=== PATIENT | male | born 1970 | race Caucasian/White ===

== ENCOUNTER 2020-08-27 14:17 | Inpatient (IN) | payer OTHER ==
[~2020-08-27] VITALS: Ht 175.3 cm; Wt 61.2 kg
[2020-08-27 14:20] VITALS: BP_SYST 114
[2020-08-27 15:16] LABS: BASOPHILS # (AUTO) 0.1 K/uL (0.0-0.2); BASOPHILS % (AUTO) 0.8 % (0.0-2.0); EOSINOPHILS # (AUTO) 0.1 K/uL (0.0-0.4); EOSINOPHILS % (AUTO) 0.6 % (0.0-4.0); HEMOGLOBIN 7.9 g/dL (14.0-18.0); LYMPHOCYTES # (AUTO) 1.7 K/uL (1.0-5.5); LYMPHOCYTES % (AUTO) 11.4 % (20.5-51.5); MEAN CORPUSCULAR HEMOGLOBIN 24 pg (27-31); MEAN CORPUSCULAR HGB CONC 31 % (32-36); MEAN CORPUSCULAR VOLUME 80 fL (79.0-98.0); MONOCYTES # (AUTO) 1.9 K/uL (0.0-1.0); MONOCYTES % (AUTO) 12.3 % (1.7-9.3); NEUTROPHILS # (AUTO) 11.5 K/uL (1.8-7.7); NEUTROPHILS % (AUTO) 74.9 % (40.0-70.0); PLATELET COUNT (AUTO) 380 K/uL (130-430); RED BLOOD CELL COUNT(AUTO) 3.27 MIL/uL (4.2-6.2); RED CELL DISTRIBUTION WIDTH 18.9 % (9.0-15.0); WHITE BLOOD COUNT (AUTO) 15.4 K/uL (4.8-10.8)
[2020-08-27] MEDS ORDERED: TRAZ-251 PO (15:19)
[2020-08-27] MEDS ORDERED: DIVA250T PO (15:19)
[2020-08-27] MEDS ORDERED: BENZ2AMP IJ (15:19)
[2020-08-27] MEDS ORDERED: BENZ1TAB76 PO (15:19)
[2020-08-27] MEDS ORDERED: HAL5 PO (15:19)
[2020-08-27] MEDS ORDERED: MIRT15TA7 PO (15:19)
[2020-08-27] MEDS ORDERED: LITH300C2 PO (15:19)
[2020-08-27 15:29] LABS: CALCIUM 9.6 mg/dL (8.4-11.0); CREATININE 0.62 mg/dL (0.55-1.30); POTASSIUM 3.9 mmol/L (3.5-5.1)
[2020-08-27] MEDS ORDERED: NACL 0.9% 1,000 ML IV ONE ×2 (15:30→20:15)
[2020-08-27 15:35] LABS: INR 1.1 (0.80-1.20); PROTHROMBIN TIME 11.5 SECS (9.5-12.5)
[2020-08-27 15:42] LABS: ALBUMIN 1.6 g/dL (3.4-4.8); TOTAL BILIRUBIN 0.2 mg/dL (0.0-1.0)
[2020-08-27] MEDS ORDERED: cefTRIAXone 1 GM in D5W 50 ML IV ONE (16:00)
[2020-08-27] MEDS ORDERED: MORPHINE 4 MG INJ. 4 MG/ML VIAL IVP ONE (16:30)
[2020-08-27] MEDS ORDERED: HALOPERIDOL LACTATE 5 MG/ML VIAL IVP ONE (16:30)
[2020-08-27] MEDS ORDERED: cefTRIAXone 1 GM VIAL ONE (16:38)
[2020-08-27] MEDS ORDERED: POTASSIUM CHLORIDE 20 MEQ TAB.PRT.SR PO PRN (17:30)
[2020-08-27] MEDS ORDERED: MAGNESIUM SULFATE 50 ML IV PRN (17:30)
[2020-08-27] MEDS ORDERED: DOCUSATE SODIUM 100 MG CAPSULE PO PRN (17:30)
[2020-08-27] MEDS ORDERED: ONDANSETRON HCL 4 MG/2 ML VIAL IVP PRN (17:30)
[2020-08-27] MEDS ORDERED: MUPIROCIN 2% TOPICAL OINTMENT 22 GM NS PRN (17:30)
[2020-08-27] MEDS ORDERED: MORPHINE 2 MG/ML INJ. SYRINGE IVP PRN ×2 (17:30)
[2020-08-27] MEDS ORDERED: NALOXONE HCL 0.4 MG/ML AMP (NARCAN) IVP PRN ×2 (17:30)
[2020-08-27] MEDS ORDERED: ZOLPIDEM TARTRATE 5 MG TABLET PO PRN (17:30)
[2020-08-27] MEDS ORDERED: ACETAMINOPHEN 325 MG TABLET PO PRN (17:30)
[2020-08-27] MEDS ORDERED: BENZTROPINE MESYLATE 1 MG TABLET PO SCH (21:00)
[2020-08-27] MEDS ORDERED: traZODone HCL 50 MG TABLET (DESYREL) PO SCH (21:00)
[2020-08-27] MEDS ORDERED: MIRTAZAPINE 15 MG TABLET PO SCH (21:00)
[2020-08-27] MEDS ORDERED: HALOPERIDOL 5 MG TABLET (HALDOL) PO SCH (21:00)
[2020-08-27 21:30] VITALS: BP_SYST 130
[2020-08-27] MEDS: MIDODRINE HCL 5 MG TABLET (PROAMATINE) PO SCH ×2 (22:02→22:13)
[2020-08-27] MEDS: LITHIUM CARBONATE 300 MG TABLET.SA PO SCH (22:03)
[2020-08-27] MEDS: HEPARIN SODIUM,PORCINE 5,000 UNITS/ML VIAL SUBCUT SCH (22:12)
[2020-08-27] MEDS: NACL 0.9% 1,000 ML IV SCH (22:22)
[2020-08-27] MEDS: DIVALPROEX SODIUM 250 MG TAB.SR.24H (DEPAKOTE ER) PO SCH (22:22)
[2020-08-28] MEDS: LORazepam 2 MG/ML VIAL IVP PRN ×2 (05:09→13:40)
[2020-08-28 05:54] LABS: BASOPHILS # (AUTO) 0.1 K/uL (0.0-0.2); BASOPHILS % (AUTO) 1.1 % (0.0-2.0); EOSINOPHILS # (AUTO) 0.1 K/uL (0.0-0.4); EOSINOPHILS % (AUTO) 1.2 % (0.0-4.0); HEMATOCRIT 27.6 % (36-54); HEMOGLOBIN 8.3 g/dL (14.0-18.0); LYMPHOCYTES # (AUTO) 1.7 K/uL (1.0-5.5); LYMPHOCYTES % (AUTO) 14.4 % (20.5-51.5); MEAN CORPUSCULAR HEMOGLOBIN 24 pg (27-31); MEAN CORPUSCULAR HGB CONC 30 % (32-36); MEAN CORPUSCULAR VOLUME 81 fL (79.0-98.0); MONOCYTES # (AUTO) 1.4 K/uL (0.0-1.0); MONOCYTES % (AUTO) 11.7 % (1.7-9.3); NEUTROPHILS # (AUTO) 8.4 K/uL (1.8-7.7); NEUTROPHILS % (AUTO) 71.6 % (40.0-70.0); PLATELET COUNT (AUTO) 408 K/uL (130-430); RED CELL DISTRIBUTION WIDTH 18.9 % (9.0-15.0); WHITE BLOOD COUNT (AUTO) 11.8 K/uL (4.8-10.8)
[2020-08-28] MEDS: NACL 0.9% 1,000 ML IV SCH (06:00)
[2020-08-28 06:12] LABS: CALCIUM 9.3 mg/dL (8.4-11.0); CREATININE 0.61 mg/dL (0.55-1.30); POTASSIUM 3.8 mmol/L (3.5-5.1)
[2020-08-28 08:00] VITALS: BP_SYST 107
[2020-08-28] MEDS ORDERED: HALOPERIDOL LACTATE 5 MG/ML VIAL IM PRN (08:45)
[2020-08-28] MEDS: LITHIUM CARBONATE 300 MG TABLET.SA PO SCH (08:46)
[2020-08-28] MEDS: DIVALPROEX SODIUM 250 MG TAB.SR.24H (DEPAKOTE ER) PO SCH (08:47)
[2020-08-28] MEDS: MIDODRINE HCL 5 MG TABLET (PROAMATINE) PO SCH ×2 (08:47→15:22)
[2020-08-28] MEDS: HEPARIN SODIUM,PORCINE 5,000 UNITS/ML VIAL SUBCUT SCH (08:55)
[2020-08-28] MEDS ORDERED: HALOPERIDOL 5 MG TABLET (HALDOL) PO SCH (09:00)
[2020-08-28] MEDS ORDERED: PIPERACILLIN/TAZO 3.375/DEX-IS 50 ML IV ONE (10:00)
[2020-08-28 12:00] VITALS: BP_SYST 94
[2020-08-28 15:01] VITALS: BP_SYST 90
[2020-08-28 15:30] VITALS: BP_SYST 90
[2020-08-28] MEDS ORDERED: cefTRIAXone 1 GM in D5W 50 ML IV SCH (17:00)
[2020-08-28] MEDS ORDERED: PIPERACILLIN/TAZO 3.375/DEX-IS 50 ML IV SCH (18:00)
== END 2020-08-28 15:55 | disposition hospice, inpatient (51) | DRG 871 ==
LOC: SED 14:17 → SMU 16:31 → STU 21:51
PROVIDERS: ADMIT General Practice; ATTEND General Practice
DX: A41.9 Sepsis, unspecified organism (principal); J69.0 Pneumonitis due to inhalation of food and vomit; E43 Unspecified severe protein-calorie malnutrition; C34.90 Malignant neoplasm of unspecified part of unspecified bronchus or lung; E87.1 Hypo-osmolality and hyponatremia; Z68.1 Body mass index [BMI] 19.9 or less, adult; Z66 Do not resuscitate; Z51.5 Encounter for palliative care; Z20.822 Contact with and (suspected) exposure to COVID-19; F29 Unspecified psychosis not due to a substance or known physiological condition; Z85.118 Personal history of other malignant neoplasm of bronchus and lung; Z79.899 Other long term (current) drug therapy
CPT/HCPCS: 36415; 71045; 80048; 80053; 80178-TC; 83036; 83605; 83735-TC; 84484; 85025; 85610-TC; 85730-TC; 87040-TC; 87081; 93005; 96361; 96365; 96375; G0378; J0696; J1630; J1644; J2060; J2270; J2543; J7030